=== PATIENT | female | born 1995 | race Caucasian/White ===

== ENCOUNTER 2019-09-07 22:16 | Emergency (ER) | payer MEDICAID ==
[~2019-09-07] VITALS: Ht 157.5 cm; Wt 66.0 kg
[~2019-09-07 22:16] MED LIST: AMOXICILLIN; VICODIN; [UNRECOGNIZED DRUG - REMARK]
[2019-09-08 00:19] VITALS: BP 98/31
== END 2019-09-08 00:56 | disposition home or self-care (01) ==
LOC: ER 22:16
DX: O21.8 Other vomiting complicating pregnancy (principal); Z3A.08 8 weeks gestation of pregnancy
CPT/HCPCS: 93005; 99283